=== PATIENT | female | born 1985 | race Caucasian/White ===

== ENCOUNTER 2017-10-13 06:14 | Day surgery (SDC) | payer OTHER ==
--- NOTE | 2017-10-09 14:01 | GHP ---
[f rep st] HISTORY AND PHYSICAL DATE OF ADMISSION: 10/13/2017 ADMITTING DIAGNOSES: 1. Missed at 8 weeks 4 days. HISTORY OF PRESENT ILLNESS: Patient is a 32-year-old, 1, para 0, who presents at 11 weeks 4 days with estimated due date 04/23/2018 by last menstrual period 07/17/2017, and consistent with ultrasound at 7 weeks 2 days. The patient presented for a visit with no complaints. Denies any leakage of fluid or vaginal bleeding. Denies any cramping. Heartbeat was unable to be heard with Dopplers at the visit, so an ultrasound was done showing size less than dates by 21 days with fetus measuring 8 weeks 4 days. No heart rate was seen. There was a small subchorionic bleed adjacent to gestational sac. The patient and spouse, Jesus, were given condolences. We discussed treatment options for miscarriage, including conservative treatment versus medical treatment with Cytotec versus surgical treatment with suction D and C. Miscarriage precautions were given. Patient is Rh negative and will need RhoGam. The patient called the office 3 days later and decided she has no signs or symptoms of miscarriage and wants to proceed with a suction D and C. Patient is scheduled for the surgery on July [address] Sandra Mckee. PAST OB HISTORY: This is the patient's 1st . GYNECOLOGIC HISTORY: Age of menarche is 12. Cycles are every 24-25 days for 7 days. Last menstrual period 07/17/2017. Positive test 08/20/2017. She did have a Mirena IUD removed April 2017. The patient denies a history of abnormal Pap smears. She does have a history of HPV, condyloma diagnosed in 2007 but denies exposure to any other sexually transmitted diseases. CURRENT MEDICATIONS: vitamins. ALLERGIES: No known drug allergies. PAST MEDICAL HISTORY: Unremarkable. PAST SURGICAL HISTORY: [place]ott teeth extraction. FAMILY HISTORY: Mother is being worked up for lupus. Father is an alcoholic. Paternal grandfather, myocardial infarction. Maternal grandmother, heart disease and diabetes. SOCIAL HISTORY: Patient is and lives with her . She works for a nonprofit. She denies any alcohol, tobacco, or illicit drug use. REVIEW OF SYSTEMS: A 10-point review of systems negative. Pertinent positives noted in HPI. LABS: Blood type B negative. Antibody negative. RPR nonreactive. Rubella nonimmune. Hepatitis B surface antigen negative. HIV negative. Parvo was immune. Pap smear, gonorrhea, and chlamydia cultures all negative 04/2017. H and H 13.6/39.3. PHYSICAL EXAMINATION: VITAL SIGNS: On admission, all vital signs are stable. Patient is afebrile. GENERAL: Well-nourished, well-developed female. Alert and oriented x3, no apparent distress. CARDIOVASCULAR: Regular rhythm. LUNGS : Clear to auscultation bilaterally. ABDOMEN: Soft, nontender, nondistended. PELVIC: Exam deferred. EXTREMITIES: Normal to inspection without calf tenderness or edema. ASSESSMENT: The patient is a 32-year-old 1, para 0 with missed at 8 weeks and 4 days. PLAN: 1. Admit to Labor and Delivery for suction D&C. 2. Surgical consents to be done at bedside by Dr. Sandra Mckee, who is performing the procedure. 3. Antibiotics personal lines agent to OR - Doxy po prior to and after procedure. 4. SCDs for DVT prophylaxis. 5. Patient is Rh negative; RhoGam to be given; instructed to call with any vaginal bleeding. /[id number]/MODL MTDD
[2017-10-13] MEDS ORDERED: DOXYCYCLINE HYCLATE 100 MG CAP/TAB PO ONE ×2 (06:44→10:15)
[2017-10-13] MEDS ORDERED: LR 1,000 ML IV ONE (06:44)
[2017-10-13] MEDS ORDERED: ONDANSETRON 4 MG/2 ML VIAL ONE (06:59)
[2017-10-13] MEDS ORDERED: LIDOCAINE 2% 5 ML SDV ONE (06:59)
[2017-10-13] MEDS ORDERED: MIDAZOLAM 2 MG/2 ML VIAL ONE (07:00)
[2017-10-13] MEDS ORDERED: fentaNYL 100 MCG/2 ML INJ ONE (07:00)
[2017-10-13] MEDS ORDERED: PROPOFOL/EMULSION 500 MG/50 ML BOTTLE IV ONE (07:00)
[2017-10-13] MEDS ORDERED: MEPERIDINE 25 MG/ML SYR IVP PRN (07:10)
[2017-10-13] MEDS ORDERED: LR 500 ML IV PRN (07:10)
[2017-10-13] MEDS ORDERED: epHEDrine SULFATE 10 MG/ML SYR IVP PRN (07:10)
[2017-10-13] MEDS ORDERED: NALOXONE HCL 0.4 MG/ML INJ IVP PRN (07:10)
[2017-10-13] MEDS ORDERED: PHENYLEPHRINE HCL 100 MCG/ML SYR IVP PRN (07:10)
[2017-10-13] MEDS ORDERED: HYDROCODONE/APAP 5/325 TAB PO PRN (07:10)
[2017-10-13] MEDS ORDERED: ONDANSETRON 4 MG/2 ML VIAL IVP PRN (07:10)
[2017-10-13] MEDS ORDERED: fentaNYL 100 MCG/2 ML INJ IVP PRN (07:10)
--- NOTE | 2017-10-13 07:10 | PDANEPAE ---
ANE History of Present Illness 8 wk missed Ab ANE Past Medical History Past Medical History: essentially neg - Surgical History Prior Surgeries: dental-no problems with anesthesia ANE Review of Systems Review of systems is: negative Review of Systems: ANE Patient History - Allergies Allergies/Adverse Reactions: No Allergies Allergy (Verified 10/09/17 15:52) - Anes Hx Anes Hx: no prior problems - Smoking Hx Smoking Status: Never smoked Marijuana use: No - Alcohol Use Alcohol Use: Rarely - Family Anes Hx Family Anes Hx: neg - N/A ANE Physical Exam - Airway Neck exam: FROM Mallampati Score: Class 2 Mouth exam: normal dental/mouth exam - Pulmonary Pulmonary: no respiratory distress - Cardiovascular Cardiovascular: regular rate and rhythym - ASA Status ASA Status: II
[2017-10-13] MEDS ORDERED: KETOROLAC 30 MG/1 ML SDV ONE (07:13)
[2017-10-13] MEDS ORDERED: GLYCOPYRROLATE 0.2 MG/1 ML VIAL ONE (07:25)
[2017-10-13] MEDS ORDERED: AMMONIA AROMATIC 1 EACH AMP IH ONE (07:26)
[2017-10-13] MEDS ORDERED: MISOPROSTOL 200 MCG TAB ONE (07:26)
[2017-10-13] MEDS ORDERED: LIDOCAINE 1% 300 MG/30 ML SDV ONE (07:26)
--- NOTE | 2017-10-13 07:45 | PDHPUP ---
History & Physical Update H&P update statement: This history and physical update is based on an assessment of the patient which was completed after admission or registration (within 24 hours), but prior to the surgery/procedure. H&P update: no change in patient's condition since H&P completed
[2017-10-13] MEDS ORDERED: PHENYLEPHRINE HCL 100 MCG/ML SYR ONE (08:03)
--- NOTE | 2017-10-13 08:53 | POSTOPPROG ---
Post Op Note Date of Operation: 10/13/17 Surgeon: Sandra Mckee Anesthesiologist: Tre Agustin MD Anesthesia: IV Sedation (mask general) Pre-op Diagnosis: MAB at 8 wks Post-op Diagnosis: same Indication: SIUP at 7 wks nl, then u/s at 11+ wks showed 8w4d MAB, no bld Procedure: suction Dilation and currettage Findings: nl uterine cavity, dilated slowly to 9.5 Ashley dilator, empty on u/s after Inf/Abcess present in the surg proc area at time of surgery?: No Depth: Organ Space EBL: Minimal Total fluids administered: 1100 Specimen(s): POCs
--- NOTE | 2017-10-13 08:54 | POSTANESTH ---
Post Anesthetic Evaluation Cardiovascular Status: Normal, Stable Respiratory Status: Normal, Stable Level of Consciousness/Mental Status: Can Participate in Eval Pain Control: Adequate, Prn Tx Ordered Nausea/Vomiting Control: Adequate, Prn Tx Ordered Complications Possibly Related to Anesthesia: None Noted
[2017-10-13 10:41] VITALS: BP 96/69
[2017-10-13] MEDS ORDERED: MEASLES,MUMPS&RUBELLA VACC/PF 0.5 ML VIAL SC ONE (11:07)
--- NOTE | 2017-10-13 12:16 | GOP ---
[f rep st] OPERATIVE REPORT DATE OF OPERATION: 10/13/2017 SURGEON: Sandra Mckee MD ANESTHESIA: MAC. ANESTHESIOLOGIST: Tre Agustin MD PREOPERATIVE DIAGNOSIS: Missed at 8+ weeks. POSTOPERATIVE DIAGNOSIS: Missed at 8+ weeks. PROCEDURE PERFORMED: Suction dilation and curettage. FINDINGS: ESTIMATED BLOOD LOSS: 25 mL. DESCRIPTION OF PROCEDURE: The patient was taken to the operating room where, following satisfactory MAC anesthesia, the patient was placed in dorsal lithotomy position appropriate for vaginal procedure . The patient had urinated prior to coming to the operating room. The patient had received an oral dose of antibiotics before the procedure, and she had SCDs on her lower extremities. The patient's p erineum and vagina were prepped and the patient draped in the usual sterile manner for vaginal proced ure. Sterile speculum was placed within the vagina. An atraumatic grasper was placed on the cervix and slow dilation of the cervix was begun. As the atraumatic grasper pulled off the cervix, then a s kinza-tooth tenaculum was used on the anterior lip of the cervix for traction for continued dilation. The cervix was slowly dilated up to 9.5 Hegar dilator. A #9 tip on the suction machine was used, a nd abundant tissue was obtained with suctioning on several passes. Following this, sharp curettage w as performed, and an additional small amount of tissue was obtained. There was good uterine cry felt throughout the uterine cavity. Ultrasound had been used during the dilation process for guidance, a s well as during the sharp curettage. There were no identified retained products of tissue on the ul trasound after the sharp curettage. One final pass with the suction was performed, and no additional tissue was obtained. There was minimal bleeding after the procedure. The tenaculum was removed, an d there was no bleeding from the tenaculum site. The patient tolerated the procedure well. She was cleaned off and taken out of position. She was awakened and then taken to the recovery room in stabl e condition. PRE-SURGERY HISTORY: Patient is a 32-year-old, G1, P0, who was at 11+ weeks by last period; however was diagnosed with a missed AB measuring only 8 weeks and 4 days with no cardiac activity noted on 10/06/2017. The patient had previously been seen and had a normal 7+ week ultrasound. The patie nt was having normal early symptoms and no signs of cramping or bleeding. The patient was given options as to proceeding with D and C versus medical treatment versus awaiting a spontaneous AB . The patient desired to proceed with surgical treatment. The patient was advised as to the risks a nd benefits of surgery, and the consent form was signed. The patient's blood type is B negative, and the patient is to get RhoGAM following the procedure. IV FLUIDS: 1100 mL. COMPLICATIONS: None. /[id number]/MODL
== END 2017-10-13 11:52 | disposition home or self-care (01) ==
LOC: FOBOP 06:14
PROVIDERS: ATTEND Obstetrics & Gynecology
PROC: 3E013GC Introduction of Other Therapeutic Substance into Subcutaneous Tissue, Percutaneous Approach (ICD-10-PCS; principal; 2017-10-13)
PROC: 10D17ZZ Extraction of Products of Conception, Retained, Via Natural or Artificial Opening (ICD-10-PCS; principal; 2017-10-13)
DX: O02.1 Missed abortion (principal); Z67.21 Type B blood, Rh negative; Z23 Encounter for immunization
CPT/HCPCS: J1885; J2250; J2370; J2405; J2704; J3010

== ENCOUNTER 2018-09-27 10:24 | Emergency (ER) | payer OTHER ==
[2018-09-27] MEDS ORDERED: NS 1,000 ML IV ONE (10:28)
--- NOTE | 2018-09-27 11:13 | EDPHY ---
HPI/HX/ROS/PE/MDM - Data Points Imaging: Discussed imaging studies w/ housecalls nurse Radiologist, I viewed and interpreted images myself Narrative: CHIEF COMPLAINT: Dyspnea HPI: The patient is a 33-year-old female with no significant past medical history. She is approximately 5 months and has been followed closely by [facility]. The has been uneventful except for mild anemia and placenta previa seen on ultrasound. The patient presents with several weeks of intermittent near syncope and severe dyspnea. She describes intermittent sensations of inability to get enough oxygen as well as diffuse tightening of her entire body and feeling like she is going to pass out. She denies actual syncope. She denies chest pain. This has been increasing in severity, and she has had several recent episodes where she had to cease exertion secondary to the symptoms. She was referred to Cardiology by her lab assistant, but Cardiology referred her today to the emergency department. She has no significant family history. This is her 2nd , she had a miscarriage last year. REVIEW OF SYSTEMS: Aside from elements discussed in the HPI, a comprehensive 10-point review of systems was reviewed and is negative. PMH: History of palpitations many years ago but no known heart disease. Family history negative. SOCIAL HISTORY: . Student. PHYSICAL EXAM: General:Patient is alert, in no acute distress. She is very well-appearing. ENT:Eyes are normal to inspection. ENT inspection normal. Patient clearing her throat frequently. Neck: Normal inspection. Full range of motion. Respiratory:No respiratory distress. Breath sounds normal bilaterally. Able to speak in full sentences without difficulty. Cardiovascular: Tachycardic rate but regular rhythm. Strong peripheral pulses. Normal cap refill. Abdomen:The abdomen is nontender to palpation. There are no peritoneal signs. There are normal bowel sounds. Back: Normal to inspection. No tenderness to palpation. Skin: Normal color. No rash. Warm and dry. Extremities: Normal appearance. Full range of motion. Neuro: Oriented x3. Normal motor function. Normal sensory function. (Ford Mitchell) ED Course: This patient presents with episodes, increasing in frequency and severity, of dyspnea and near-syncope. Given and elevated resting HR, PE is a concern, especially with mildly elevated d-dimer. Echo was performed and read by Dr. Garcia as normal, including normal RV pressure. I consulted with Dr. Mckee, who is in agreement with plan to proceed with CTA to exclude PE. I had an extensive discussion with patient and her partner regarding risks and benefits of this study. I have signed the patient out to Dr. Enamorado pending US BLE and CXR. (Ford Mitchell) I assumed care of this patient from Dr. Mitchell at shift change; US BLE and CXR are still pending. 1605: I spoke with Dr. Krause, radiologist, regarding patient's US BLE whic are negative. CXR still pending. 1630: Patient's chest x-ray is negative per my read. 1631: Reassessed patient and discussed imaging findings. I also had an extensive discussion about the risks and benefits associated with having a CTA to rule out a PE. The patient is comfortable with having a CTA. 1737: I spoke with Dr. Marx, radiologist, who reports that the patients CTA is negative. 1739: Reassessed patient and discussed negative imaging findings. Patient will have a DuoNeb treatment prior to discharge. I have advised her to follow up with her PCP or RECLAMATION FURNACE OPERATOR tomorrow. Return precautions provided; patient is comfortable with this plan. (Chandan Enamorado) - Data Points Imaging Results: Imaging Impressions Extremity Venous Study 09/27/18 14:53 Impression: Slowed venous blood flow. No bilateral LE DVT. Findings and recommendations discussed with Dr. Enamorado at 1602 hour, 09/27/2018. Chest X-Ray 09/27/18 14:54 Impression: Suspect airways disease. No pneumonia. Chest/Thorax CTA 09/27/18 16:39 Impression: 1. No evidence for pulmonary embolic disease or source for acute dyspnea identified. 2. Likely old minimal T7 compression. Results discussed with Dr. Chandan Enamorado at 5:36 PM. General information for patients regarding this examination can be found at [email or web address]. If you have questions or comments about this report, please contact me at (hospital) or [phone] (cell). Laboratory Results: Laboratory Results 09/27/18 10:50 09/27/18 10:50 09/27/18 09/27/18 09/27/18 11:46 11:45 10:50 WBC RBC Hgb Hct MCV MCH MCHC RDW Plt Count MPV Neut % (Auto) Lymph % (Auto) [place] % (Auto) Eos % (Auto) Baso % (Auto) Nucleat RBC Rel Count Absolute Neuts (auto) Absolute Lymphs (auto) Absolute Monos (auto) Absolute Eos (auto) Absolute Basos (auto) Absolute Nucleated RBC Immature Gran % Immature Gran # D-Dimer 0.59 ug/mLFEU H ug/mLFEU (0.00-0.50) Sodium Potassium Chloride Carbon Dioxide Anion Gap BUN Creatinine Estimated GFR Glucose Calcium Total Bilirubin Conjugated Bilirubin Unconjugated Bilirubin AST ALT Alkaline Phosphatase POC Troponin I 0.02 ng/mL ng/mL (0.00-0.08) Total Protein Albumin TSH 1.090 uIU/mL uIU/mL (0.465-4.680) Urine Color Urine Appearance Urine pH Ur Specific [place] Urine Protein Urine Ketones Urine Blood Urine Nitrate Urine Bilirubin Urine Urobilinogen Ur Leukocyte Esterase Urine Glucose 09/27/18 09/27/18 09/27/18 10:50 10:50 10:50 WBC RBC Hgb Hct MCV MCH MCHC RDW Plt Count MPV Neut % (Auto) Lymph % (Auto) [place] % (Auto) Eos % (Auto) Baso % (Auto) Nucleat RBC Rel Count Absolute Neuts (auto) Absolute Lymphs (auto) Absolute Monos (auto) Absolute Eos (auto) Absolute Basos (auto) Absolute Nucleated RBC Immature Gran % Immature Gran # D-Dimer REJ Sodium 136 mEq/L mEq/L (135-145) Potassium 3.7 mEq/L mEq/L (3.5-5.2) Chloride 104 mEq/L mEq/L (97-110) Carbon Dioxide 23 mEq/l mEq/l (22-31) Anion Gap 9 mEq/L mEq/L (6-14) BUN 6 mg/dL L mg/dL (7-23) Creatinine 0.5 mg/dL L mg/dL (0.6-1.0) Estimated GFR > 60 Glucose 79 mg/dL mg/dL (70-100) Calcium 9.6 mg/dL mg/dL (8.5-10.4) Total Bilirubin 0.4 mg/dL mg/dL (0.1-1.4) Conjugated Bilirubin 0.1 mg/dL mg/dL (0.0-0.5) Unconjugated Bilirubin 0.3 mg/dL mg/dL (0.0-1.1) AST 33 IU/L IU/L (14-46) ALT 36 IU/L IU/L (9-52) Alkaline Phosphatase 70 IU/L IU/L (38-126) POC Troponin I Total Protein 7.4 g/dL g/dL (6.3-8.2) Albumin 4.2 g/dL g/dL (3.5-5.0) TSH Urine Color PALE YELLOW Urine Appearance CLEAR Urine pH 6.0 (5.0-7.5) Ur Specific [place] 1.003 (1.002-1.030) Urine Protein NEGATIVE (NEGATIVE) Urine Ketones NEGATIVE (NEGATIVE) Urine Blood NEGATIVE (NEGATIVE) Urine Nitrate NEGATIVE (NEGATIVE) Urine Bilirubin NEGATIVE (NEGATIVE) Urine Urobilinogen NEGATIVE EU EU (0.2-1.0) Ur Leukocyte Esterase NEGATIVE (NEGATIVE) Urine Glucose NEGATIVE (NEGATIVE) 09/27/18 10:50 WBC 10.21 10^3/uL H 10^3/uL (3.80-9.50) RBC 4.02 10^6/uL L 10^6/uL (4.18-5.33) Hgb 13.1 g/dL g/dL (12.6-16.3) Hct 39.7 % % (38.0-47.0) MCV 98.8 fL fL (81.5-99.8) MCH 32.6 pg pg (27.9-34.1) MCHC 33.0 g/dL g/dL (32.4-36.7) RDW 14.4 % % (11.5-15.2) Plt Count 348 10^3/uL 10^3/uL (150-400) MPV 9.4 fL fL (8.7-11.7) Neut % (Auto) 87.8 % H % (39.3-74.2) Lymph % (Auto) 6.4 % L % (15.0-45.0) [place] % (Auto) 4.6 % % (4.5-13.0) Eos % (Auto) 0.3 % L % (0.6-7.6) Baso % (Auto) 0.3 % % (0.3-1.7) Nucleat RBC Rel Count 0.0 % % (0.0-0.2) Absolute Neuts (auto) 8.97 10^3/uL H 10^3/uL (1.70-6.50) Absolute Lymphs (auto) 0.65 10^3/uL L 10^3/uL (1.00-3.00) Absolute Monos (auto) 0.47 10^3/uL 10^3/uL (0.30-0.80) Absolute Eos (auto) 0.03 10^3/uL 10^3/uL (0.03-0.40) Absolute Basos (auto) 0.03 10^3/uL 10^3/uL (0.02-0.10) Absolute Nucleated RBC 0.00 10^3/uL 10^3/uL (0-0.01) Immature Gran % 0.6 % % (0.0-1.1) Immature Gran # 0.06 10^3/uL 10^3/uL (0.00-0.10) D-Dimer Sodium Potassium Chloride Carbon Dioxide Anion Gap BUN Creatinine Estimated GFR Glucose Calcium Total Bilirubin Conjugated Bilirubin Unconjugated Bilirubin AST ALT Alkaline Phosphatase POC Troponin I Total Protein Albumin TSH Urine Color Urine Appearance Urine pH Ur Specific [place] Urine Protein Urine Ketones Urine Blood Urine Nitrate Urine Bilirubin Urine Urobilinogen Ur Leukocyte Esterase Urine Glucose Medications Given: Discontinued Medications Sodium Chloride (Ns) 1,000 mls @ 0 mls/hr IV EDNOW ONE; Wide Open PRN Reason: Protocol Stop: 09/27/18 10:29 Last Admin: 09/27/18 10:55 Dose: 1,000 mls Point of Care Test Results: Chemistry 09/27/18 11:46 POC Troponin I 0.02 ng/mL ng/mL (0.00-0.08) General Time Seen by Provider: 09/27/18 10:28 Initial Vital Signs: Initial Vital Signs Temperature (C) 37.2 C 09/27/18 10:27 Heart Rate 111 H 09/27/18 10:27 Respiratory Rate 16 09/27/18 10:27 Blood Pressure 113/102 H 09/27/18 10:27 O2 Sat (%) 100 09/27/18 10:27 O2 Delivery Mode Room Air Allergies/Adverse Reactions: No Allergies Allergy (Verified 09/27/18 10:29) Home Medications: Medication Instructions Recorded Doxycycline Hyclate [Vibramycin 100 mg PO ONCE capsule 10/13/17 100 MG (*)] Departure - Departure Disposition: Home, Routine, Self-Care Clinical Impression: Near syncope Dyspnea Qualifiers: Dyspnea type: unspecified Qualified Code(s): R06.00 - Dyspnea, unspecified Instructions: Dyspnea (ED), Near Syncope (ED) Additional Instructions: 1. Follow-up with your primary doctor within 72 hours. 2. Return to the Emergency Department for fever, chest pain, shortness of breath , increasing pain or other worsening of condition. Referrals: Sandra Mckee MD [Medical Doctor] - As per Instructions
[2018-09-27 11:22] LABS: PLATELET COUNT 348 10^3/uL (150-400)
--- NOTE | 2018-09-27 12:17 | CPEKG ---
Test Reason : OPEN Blood Pressure : / mmHG Vent. Rate : 099 BPM Atrial Rate : 098 BPM P-R Int : 142 ms QRS Dur : 077 ms QT Int : 326 ms P-R-T Axes : 068 040 035 degrees QTc Int : 419 ms Sinus rhythm Probable left atrial enlargement Low voltage, precordial leads Confirmed by Ford Mitchell ([id number]) on 09/27/2018 12:17:04 PM Referred By: Ford Mitchell Confirmed By:Ford Mitchell
--- NOTE | 2018-09-27 13:27 | ECHO ---
[email or web address] [address] Main: [phone] Echocardiography Examination Transthoracic Name: JORI SAWYER MR#: [id number] Study Date: 09/27/2018 Study Time: 12:32 PM Date of : 1985 Age: 33 year(s) Height: 162.6 cm (64 in.) Weight: 59.87 kg (132 lb.) BSA: 1.64 m2 Gender: Female Examination: Limited Echo Contrast: Image Quality: Adequate Rhythm: Heart Rate: BP: / Indication: near syncope, Procedure Staff Referring Physician: Volunteer Fire Fighter: Mercedes Jeffery [facility] Reading Physician: Michael Garcia MD Requesting Provider: Indication: near syncope, Measurements Chambers AV/MV Label Value Normal Value Label Value Normal Value EF lower range (%) 60 % AV PGmax 9 mmHg EF upper range (%) 65 % AV PGmean 5 mmHg IVSd, 2D 0.9 cm (0.6cm - 1.1cm) AV Vmax 1.5 m/s LVDd, 2D 4.6 cm (3.9cm - 5.3cm) GLENNA (continuity eq. 1.4 cm2 LVDs, 2D 3.1 cm (2.1cm - 4cm) Vmax) LVEF, 2D 63 % (54% - 74%) GLENNA D (continuity eq. 1.4 cm2 LVEF, BP 63 % (55% - 70%) VTI) LVOT PGmax 4 mmHg MV A Vmax 0.74 m/s LVOT PGmean 2 mmHg MV DT 158 ms LVOT Vmax 0.94 m/s (0.7m/s - 1.1m/s) MV E' lateral 0.17 m/s LVOT Vmean 0.72 m/s MV E' mean 0.16 m/s LVOTd 1.7 cm (1.8cm - 2cm) MV E' septal 0.14 m/s LVPWd, 2D 0.9 cm MV E Vmax 0.86 m/s RVDd, 2D 2.8 cm (1.9cm - 3.8cm) MV E/A 1.16 LA Volume, BP 46 ml (22ml - 52ml) MV E/E' lateral 5.1 LADs, 2D 3.5 cm (2.7cm - 3.8cm) MV E/E' mean 5.55 LAESV index, BP 28 ml/m2 MV E/E' septal 6.1 (0.6 - 2.6) RA Area 14.5 cm2 MV PHT 0.04 s Additional Vessels MV PHT 42 ms Label Value Normal Value MVA PHT 5.2 cm2 Patient: JORI SAWYER Study Date: 09/27/2018 Page 1 of 3 12:32 PM AoAsc 2.4 cm TV/PV AoRoot, 2D 2.4 cm (1.4cm - 2.6cm) Label Value Normal Value IVC 1.8 cm (1.2cm - 2.3cm) RA Pressure 5 mmHg RVSP 17 mmHg TR Pmax 12 mmHg TR Vmax 1.75 m/s PV PGmax 3 mmHg PV Vmax, Caliper 0.88 m/s (0.6m/s - 0.9m/s) Conclusions Overall Conclusions: Normal study Findings Left Ventricle: Left ventricle is normal in size. Normal global systolic left ventricular function. The ejection fraction, measured by Simpsons method, is 63 %. EF range is estimated at 60 % - 65 %. Left ventricle wall thickness is normal. There are no regional wall motion abnormalities. Left ventricular diastolic function parameters are normal. No LV hypertrophy. Right Ventricle: Normal size right ventricle. Right ventricular systolic function is normal. Left Atrium: The left atrium is normal in size. Right Atrium: The right atrium is normal in size. Mitral Valve: Mitral valve appears structurally normal. Mild mitral regurgitation. No mitral valve stenosis. Aortic Valve: Aortic leaflets are structurally normal. No aortic valve regurgitation. There is no aortic stenosis. Tricuspid Valve: Tricuspid valve leaflets are structurally normal. Mild tricuspid regurgitation. No tricuspid valve stenosis. Right Ventricular systolic pressure is measured at 17 mmHg. Pulmonary artery pressure normal. Pulmonic Valve: Pulmonic leaflets are structurally normal. No significant pulmonic valve regurgitation is evident. Aorta: The aortic root size in 2D measures 2.4 cm. The ascending aorta measures 2.4 cm. Aorta Measurements AoRoot, 2D is 2.4 cm. IVC: The inferior vena cava is normal in size. Pericardium: No pericardial effusion. Exam Details Procedure Ordered: Limited Echo Procedure Status: Routine study Image Quality: Adequate Facility Location: Cardiac Echo 1 (No Signature Object) Patient: JORI SAWYER Study Date: 09/27/2018 Page 2 of 3 12:32 PM Patient: JORI SAWYER Study Date: 09/27/2018 Page 3 of 3 12:32 PM [id number]
[2018-09-27] MEDS ORDERED: IOPAMIDOL (ISOVUE-370) 150 ML BTL IV ONE (16:53)
[2018-09-27] MEDS ORDERED: IPRATROPIUM/ALBUTEROL 3 ML DEYVIAL IH ONE (17:43)
[2018-09-27 18:20] VITALS: BP 125/78
== END 2018-09-27 18:20 | disposition home or self-care (01) ==
DX: O26.812 Pregnancy related exhaustion and fatigue, second trimester (principal); O99.512 Diseases of the respiratory system complicating pregnancy, second trimester; O99.282 Endocrine, nutritional and metabolic diseases complicating pregnancy, second trimester; Z3A.20 20 weeks gestation of pregnancy
CPT/HCPCS: 84484-ER; Q9967

== ENCOUNTER → 2018-11-19 | Outpatient (CLI) | payer OTHER | LOC: FIMAGING 14:39 | PROVIDERS: ATTEND Obstetrics & Gynecology | DX: O40.3XX0 Polyhydramnios, third trimester, not applicable or unspecified (principal); Z3A.28 28 weeks gestation of pregnancy ==

== ENCOUNTER → 2018-12-11 | Outpatient (CLI) | payer OTHER | LOC: FIMAGING 09:35 ==